=== PATIENT | male | born 1955 | race Caucasian/White ===

== ENCOUNTER 2016-11-21 17:40 | Emergency (ER) | payer OTHER ==
--- NOTE | 2016-11-21 17:44 | PDOC ---
[id number] No Limitations - History of Present Illness Initial Comments: 11/21/16 18:20 The patient is a 60 year old male, with a significant past medical history of diabetes, who presents to the emergency department with left hip pain for the past 3 days. He describes his pain as moderate, without radiation. He notes that when he touches the area, it exacerbates the pain. He states that he was doing physical labor a few days ago prior to the start of the pain, when he was attempting to clear snow away. He denies any kind of trauma or fall. He notes that he took 2 Tylenol 500mg yesterday. The patient denies chest pain, shortness of breath, headache and dizziness. Allergies: None Past surgical history: None reported Social history: Occasional alcohol use. No tobacco or drug use reported <Sheldon Logan - Last Filed: 11/21/16 18:20> <Ngoc Reagan - Last Filed: 11/22/16 11:28> - General Chief Complaint: Pain, Acute Stated Complaint: left hip pain x 3 days. Time Seen by Provider: 11/21/16 17:43 Past History <Sheldon Logan - Last Filed: 11/21/16 18:20> - Past Medical History Diabetes: Yes - Psycho/Social/Smoking Cessation Hx Anxiety: No Suicidal Ideation: No Smoking Status: No Smoking History: Never smoked Number of Cigarettes Smoked Daily: 0 Hx Alcohol Use: Yes ([facility]) Substance Use Type: None <Ngoc Reagan - Last Filed: 11/22/16 11:28> - Past Medical History Allergies/Adverse Reactions: Allergies Allergy/AdvReac Type Severity Reaction Status Date / Time No Known Allergies Allergy Verified 11/21/16 17:42 Home Medications: Ambulatory Orders Glyburide/Metformin HCl [Glyburide-Metformin 2.5-500 mg] 0 each PO BID 11/21/16 Review of Systems - Review of Systems Able to Perform ROS?: Yes Comments:: 11/21/16 18:21 GENERAL/CONSTITUTIONAL: No fever or chills. No weakness. HEAD, EYES, EARS, NOSE AND THROAT: No change in vision. No ear pain or discharge. No sore throat. CARDIOVASCULAR: No chest pain or shortness of breath RESPIRATORY: No cough, wheezing, or hemoptysis. GASTROINTESTINAL: No nausea, vomiting, diarrhea or constipation. GENITOURINARY: No dysuria, frequency, or change in urination. MUSCULOSKELETAL: +Left hip pain. . No neck or back pain. SKIN: No rash NEUROLOGIC: No headache, vertigo, loss of consciousness, or change in strength/ sensation. ENDOCRINE: No increased thirst. No abnormal weight change HEMATOLOGIC/LYMPHATIC: No anemia, easy bleeding, or history of blood clots. ALLERGIC/IMMUNOLOGIC: No hives or skin allergy. <Sheldon Logan - Last Filed: 11/21/16 18:20> *Physical Exam - Vital Signs Last Vital Signs Temp Pulse Resp BP Pulse Ox 98.9 F 67 18 165/68 100 11/21/16 17:45 11/21/16 17:45 11/21/16 17:45 11/21/16 17:45 11/21/16 17:45 - Physical Exam Comments: 11/21/16 18:21 GENERAL: Awake, alert, and fully oriented, in no acute distress HEAD: No signs of trauma, normocephalic, atraumatic EYES: PERRLA, EOMI, sclera anicteric, conjunctiva clear ENT: Auricles normal inspection, hearing grossly normal, nares patent, oropharynx clear without exudates. Moist mucosa NECK: Normal ROM, supple, no lymphadenopathy, JVD, or masses LUNGS: No distress, speaks full sentences, clear to auscultation bilaterally HEART: Regular rate and rhythm, normal S1 and S2, no murmurs, rubs or gallops, peripheral pulses normal and equal bilaterally. ABDOMEN: Soft, nontender, normoactive bowel sounds. No guarding, no rebound. No masses EXTREMITIES: Normal inspection, Normal range of motion, no edema. No clubbing or cyanosis. NEUROLOGICAL: Cranial nerves II through XII grossly intact. Normal speech, normal gait, no focal sensorimotor deficits SKIN: Warm, Dry, normal turgor, no rashes or lesions noted. <Sheldon Logan - Last Filed: 11/21/16 18:20> ED Treatment Course - Medications Given in the ED: ED Medications Discontinued Medications Generic Name Dose Route Start Last Admin Trade Name Freq PRN Reason Stop Dose Admin Ibuprofen 400 mg 11/21/16 17:56 11/21/16 17:59 Motrin - PO 11/21/16 17:57 400 mg ONCE ONE Administration <Sheldon Logan - Last Filed: 11/21/16 18:20> Medical Decision Making - Medical Decision Making Pt improved with ibuprofen. No significant findings on XR. Likely muscle strain related to clearing heavy snow during recent . Stable for DC home. <Ngoc Reagan - Last Filed: 11/22/16 11:28> *DC/Admit/Observation/Transfer - Attestations Scribe Attestion: 11/21/16 18:22 Documentation prepared by Sheldon Logan, acting as medical assistant instructor for Ngoc Reagan MD <Sheldon Logan - Last Filed: 11/21/16 18:20> - Discharge Dispostion Admit: No <Ngoc Reagan - Last Filed: 11/22/16 11:28> Diagnosis at time of Disposition: Muscle strain - Discharge Dispostion Disposition: HOME Condition at time of disposition: Stable - Patient Instructions Printed Discharge Instructions: DI for Muscle Strain
[2016-11-21] MEDS ORDERED: IBUPROFEN 400 MG TABLET (FP) PO ONE ×2 (17:56→17:58)
[2016-11-21 18:03] VITALS: BP 165/68; PULSE 67; TEMP 98.9; BMI 21.2
== END 2016-11-21 19:16 | disposition home or self-care (01) ==
LOC: FER 17:40
DX: S76.012A Strain of muscle, fascia and tendon of left hip, initial encounter (principal); X58.XXXA Exposure to other specified factors, initial encounter; Y93.89 Activity, other specified; Y92.9 Unspecified place or not applicable; E11.9 Type 2 diabetes mellitus without complications
CPT/HCPCS: 73523-TC; 99282-25

== ENCOUNTER 2022-05-29 17:43 | Emergency (ER) | payer OTHER ==
[2022-05-29 17:53] VITALS: RESP 18; TEMP 98.6; BMI 22.2
[2022-05-29 18:33] VITALS: BP 170/62; PULSE 85
== END 2022-05-29 18:30 | disposition home or self-care (01) ==
LOC: FER 17:43
DX: H61.23 Impacted cerumen, bilateral (principal)
CPT/HCPCS: 99283-25

== ENCOUNTER 2023-01-29 19:49 | Emergency (ER) | payer OTHER ==
[2023-01-29] MEDS ORDERED: TETRACAINE 0.5% OPHTH SOLN 2 ML BOTTLE ONE (20:07)
[2023-01-29] MEDS ORDERED: FLUORESCEIN NA 1 EA STRIP ONE (20:08)
[2023-01-29 20:42] VITALS: BP 164/85; PULSE 58; RESP 16; TEMP 97.7; BMI 21.9
[2023-01-29] MEDS ORDERED: TOBRA 0.3%/DEXAMETH 0.1% OPHTHALMIC SUSP 2.5 ML BTL OD STA (20:43)
[2023-01-29] MEDS ORDERED: TOBRA 0.3%/DEXAMETH 0.1% OPHTHALMIC SUSP 2.5 ML BTL ONE (20:46)
== END 2023-01-29 20:49 | disposition home or self-care (01) ==
LOC: FER 19:49
DX: S05.01XA Injury of conjunctiva and corneal abrasion without foreign body, right eye, initial encounter (principal); H57.11 Ocular pain, right eye; W22.8XXA Striking against or struck by other objects, initial encounter
CPT/HCPCS: 99283-25